=== PATIENT | female | born 1960 | race Caucasian/White ===

== ENCOUNTER 2018-12-13 11:45 | Emergency (ER) | payer OTHER | END 2018-12-13 15:52 | disposition home or self-care (01) | LOC: JER 11:45 ==

== ENCOUNTER 2020-02-20 20:00 | Observation (INO) | payer OTHER ==
[2020-02-20 20:23] VITALS: BMI 27.3
--- NOTE | 2020-02-20 20:47 | PDOC ---
Attending Attestation - Resident Resident Name: Dior Kilpatrick - ED Attending Attestation I have performed the following: I have examined & evaluated the patient, The case was reviewed & discussed with the resident, I agree w/resident's findings & plan - HPI HPI: 02/21/20 00:54 see resident hpi - Physicial Exam PE: 02/21/20 00:54 see resident exam - Medical Decision Making 02/21/20 00:57 60-year-old female with history of lupus here for intermittent left-sided chest pain, patient also admits to numbness and tingling to all 4 extremities EKG and labs were reviewed, there are no acute ST segment changes Troponin is within normal limits Patient has no acute respiratory distress, she is not tachycardic and not hypoxic, based on clinical evaluation PE not likely We will admit to medical service, telemetry for further observation Discharge - Discharge Information Problems reviewed: Yes Clinical Impression/Diagnosis: Chest pain, Paresthesia - Follow up/Referral Referrals: Angelita Newman [Primary Care Provider] - - Patient Discharge Instructions - Post Discharge Activity
[2020-02-20] MEDS ORDERED: ASPIRIN 81 MG CHEWABLE TABLETS PO ONE (21:35)
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
[2020-02-20 22:12] LABS: HEMATOCRIT 37.2 % (32.4-45.2); HEMOGLOBIN 12.3 GM/dL (10.7-15.3); MCH 30.1 pg (25.7-33.7); MEAN CELL VOLUME 91.2 fl (80-96); MEAN PLT VOLUME 8.5 fl (7.5-11.1); PLATELET COUNT 271 K/MM3 (134-434); RBC 4.08 M/mm3 (3.60-5.2); RDW 13.5 % (11.6-15.6); WHITE BLOOD COUNT 7.5 K/mm3 (4.0-10.0)
--- NOTE | 2020-02-20 22:12 | PDOC ---
*Physical Exam - Vital Signs Last Vital Signs Temp Pulse Resp BP Pulse Ox 97.9 F 82 20 139/84 98 02/20/20 20:09 02/20/20 20:09 02/20/20 20:09 02/20/20 20:09 02/20/20 20:09 ED Treatment Course - LABORATORY CBC & Chemistry Diagram: 02/20/20 21:47 02/20/20 21:47 - RADIOLOGY Radiograph Interpretation: HCT: THIS IS A PRELIMINARY REPORT DATE OF SERVICE: 2020-02-21 01:30:13 IMAGES: 275 EXAM: HEAD CT WITHOUT CONTRAST HISTORY: Worsening paresthesias COMPARISON: None. FINDINGS: The ventricular system is midline and nondilated. Mild cortical atrophy is noted.. There is no bleed, mass, extra-axial fluid collection or mass effect. No skull fracture or skull lesion is identified. The visualized paranasal sinuses and mastoid air cells are clear. IMPRESSION: No evidence of acute pathology. One or more of the following dose reduction techniques were used: automated exposure control, adjustment of the mA and/or kV according to patient size, use of iterative recon structive technique. THIS DOCUMENT HAS BEEN ELECTRONICALLY SIGNED Pako Blackman MD 02/21/2020 01:51 EST Medical Decision Making - Medical Decision Making Received sign out from resident Dr. Kilpatrick. In short, pt is a 60 y/o female presenting with left sided chest pain and paresthesias. Will f/u pending HCT and labs. HCT unremarkable for acute pathology. Reviewed laboratory data. No clinically significant derangement noted. 21 Feb 2020 02:25 AM Page sent for Dr. Newman through office answering service. Awaiting call back. 21 Feb 2020 02:39 AM Telephone discussion with Dr. Angelita Newman. Verbally appraised of the pts HPI, ED course, and current plan of management. Accepted the pt to tele obs for chest pain. Requested Dr. Villalobos be consulted for cardiology. Request placed in [employer]. Discussed results and plan to place on observation with pt. Expressed verbal understanding and agreement with plan. Case discussed with ED Attending Dr. Mancera. Miugel Oquendo M.D., PGY3 Emergency Medicine Residency Discharge - Discharge Information Problems reviewed: Yes Clinical Impression/Diagnosis: Chest pain, Paresthesia Condition: Stable - Admission Yes - Follow up/Referral Referrals: Angelita Newman [Primary Care Provider] - - Patient Discharge Instructions - Post Discharge Activity
[2020-02-20] MEDS ORDERED: ASPIRIN COATED 81 MG TABLET.EC ONE (22:14)
[2020-02-20 22:36] LABS: INR 0.95 (0.83-1.09); PROTHROMBIN TIME (PATIENT) 11.2 SEC (9.7-13.0)
[2020-02-20 22:39] LABS: ACTIVATED PTT 27.4 SECONDS (25.2-36.5)
[2020-02-20 23:12] LABS: MAGNESIUM 2.2 mg/dL (1.8-2.4); PHOSPHOROUS 3.2 mg/dL (2.5-4.9)
[2020-02-20 23:21] LABS: ALBUMIN 3.6 g/dl (3.4-5.0); ALK PHOS 71 U/L (45-117); ANION GAP 7 MMOL/L (8-16); BILIRUBIN,TOTAL 0.4 mg/dL (0.2-1); BLOOD UREA NITROGEN 12.4 mg/dL (7-18); CALCIUM 8.7 mg/dL (8.5-10.1); CHLORIDE 110 mmol/L (98-107); CO2 23 mmol/L (21-32); CREATININE 0.7 mg/dL (0.55-1.3); N-TERMINAL BNP 39.6 pg/ml (5-125); POTASSIUM 5.2 mmol/L (3.5-5.1); SGOT/AST 61 U/L (15-37); SGPT/ALT 38 U/L (13-61); SODIUM 141 mmol/L (136-145); TOT PROT 7.2 g/dl (6.4-8.2)
[2020-02-20 23:26] LABS: GLUCOSE,RANDOM 76 mg/dL (74-106)
[2020-02-21 09:23] LABS: ANION GAP 5 MMOL/L (8-16); BLOOD UREA NITROGEN 9.7 mg/dL (7-18); CALCIUM 8.8 mg/dL (8.5-10.1); CHLORIDE 110 mmol/L (98-107); CO2 28 mmol/L (21-32); CREATININE 0.7 mg/dL (0.55-1.3); GLUCOSE,RANDOM 80 mg/dL (74-106); POTASSIUM 3.6 mmol/L (3.5-5.1); SODIUM 144 mmol/L (136-145)
[2020-02-21] MEDS ORDERED: LOSARTAN POTASSIUM 50 MG TABLET ONE (09:41)
[2020-02-21] MEDS ORDERED: ASPIRIN 81 MG CHEWABLE TABLETS ONE (09:41)
[2020-02-21] MEDS ORDERED: HYDROXYCHLOROQUINE SO4 200 MG TABLET (FP) PO ONE (09:42)
--- NOTE | 2020-02-21 09:47 | CON.CARD ---
Consult Consult Specialty:: Cardiology Referred by:: Betty Newman Reason for Consultation:: Chest pain - History of Present Illness Chief Complaint: Chest pain History of Present Illness: 60-year-old female with history of lupus, HTN here for intermittent left-sided, sharp, stabbing chest pain, HERBERT, light-headedness last several weeks, patient also admits to numbness and tingling to all 4 extremities. She denies near or true syncope, palpitations, orthopnea, PND, LE edema or change in exercise capacity. - History Source History Provided By: Patient Limitations to Obtaining History: No Limitations - Alcohol/Substance Use Hx Alcohol Use: No - Smoking History Smoking history: Never smoked Have you smoked in the past 12 months: No Home Medications - Allergies Allergies/Adverse Reactions: Allergies Allergy/AdvReac Type Severity Reaction Status Date / Time No Known Allergies Allergy Verified 12/13/18 12:05 - Home Medications Home Medications: Ambulatory Orders Hydroxychloroquine Sulfate [Plaquenil] 200 mg PO DAILY 02/21/20 Losartan Potassium [Cozaar -] 25 mg PO DAILY 02/21/20 Review of Systems - Review of Systems Cardiovascular: reports: Chest Pain Neurological: reports: Numbness, Parasthesia Vital Signs: Vital Signs Temperature 98.2 F 02/21/20 06:59 Pulse Rate 69 02/21/20 06:59 Respiratory Rate 16 02/21/20 06:59 Blood Pressure 125/68 02/21/20 06:59 O2 Sat by Pulse Oximetry (%) 100 02/21/20 06:59 Constitutional: Yes: No Distress, Calm Neck: Yes: Supple Respiratory: Yes: Regular, CTA Bilaterally Gastrointestinal: Yes: Normal Bowel Sounds, Soft Cardiovascular: Yes: Regular Rate and Rhythm JVD: No Carotid Bruit: No Heart Sounds: Yes: S1, S2 Edema: No - Other Data Labs, Other Data: CBC, BMP 02/20/20 21:47 02/21/20 08:30 INR, PTT INR 0.95 (0.83-1.09) 02/20/20 21:47 Troponin, BNP 02/20/20 02/21/20 02/21/20 21:47 04:30 08:30 Troponin I < 0.02 < 0.02 < 0.02 B-Natriuretic Peptide 39.6 Troponin, BNP 02/20/20 02/21/20 02/21/20 21:47 04:30 08:30 Troponin I < 0.02 < 0.02 < 0.02 B-Natriuretic Peptide 39.6 NSR @ 73 w/o ST-T changes Ejection Fraction %: LVEF > or = 40 % Imaging - Results Chest X-ray: Report Reviewed (NAD) Problem List - Problems (1) Hypertension Code(s): I10 - ESSENTIAL (PRIMARY) HYPERTENSION Qualifiers: Hypertension type: essential hypertension Qualified Code(s): I10 - Essential (primary) hypertension (2) Lupus Code(s): M32.9 - SYSTEMIC LUPUS ERYTHEMATOSUS, UNSPECIFIED (3) Chest pain Code(s): R07.9 - CHEST PAIN, UNSPECIFIED Qualifiers: Chest pain type: other chest pain Qualified Code(s): R07.89 - Other chest pain; R07.8 - Other chest pain Assessment/Plan 1. Chest pain ruled out PA 2. Lupus 3. Dyspnea on exertion 4. HTN P:1. Ruled out PA 2. F/u HCT, carotid US 3. Continue losartan 50 qd 4. Given CV risk factors, recommend outpatient TTE and stress testing as outpatient 5. Thank you for consultative opportunity
[2020-02-21] MEDS: HYDROXYCHLOROQUINE SO4 200 MG TABLET (FP) PO SCH (10:04)
[2020-02-21] MEDS: ASPIRIN 81 MG CHEWABLE TABLETS PO SCH (10:04)
[2020-02-21] MEDS: LOSARTAN POTASSIUM 25 MG TABLET PO SCH (10:04)
--- NOTE | 2020-02-21 10:07 | CON.NEURO ---
Consult Consult Specialty:: Alessia Referred by:: Trent - History of Present Illness History of Present Illness: doe is a very pleasant 52-year-old right-handed female patient with history of lupus comes in to the hospital for neurological consultation and evaluation with a chief complaint of chest pressure chest pain neurology was called to evaluate the patient with a chief complaint of paresthesia and numbnessin upper and lower extremities. Patient denies any recent trauma patient was not exposed to Covid 19 no report of any recent head trauma patient had a CAT scan of the head which I reviewed. Patientdenies any history of speech problem. Patient with mild difficulty expressing herself. - History Source History Provided By: Patient Limitations to Obtaining History: No Limitations - Alcohol/Substance Use Hx Alcohol Use: No - Smoking History Smoking history: Never smoked Have you smoked in the past 12 months: No Home Medications - Allergies Allergies/Adverse Reactions: Allergies Allergy/AdvReac Type Severity Reaction Status Date / Time No Known Allergies Allergy Verified 12/13/18 12:05 - Home Medications Home Medications: Ambulatory Orders Hydroxychloroquine Sulfate [Plaquenil] 200 mg PO DAILY 02/21/20 Losartan Potassium [Cozaar -] 25 mg PO DAILY 02/21/20 Family Medical History Family History: Unremarkable Review of Systems - Review of Systems Constitutional: reports: No Symptoms Eyes: reports: No Symptoms Neurological: reports: Parasthesia, Tremors Physical Exam-Neuro Vital Signs: Vital Signs Temperature 98.2 F 02/21/20 06:59 Pulse Rate 79 02/21/20 09:58 Respiratory Rate 17 02/21/20 09:58 Blood Pressure 119/85 02/21/20 09:58 O2 Sat by Pulse Oximetry (%) 99 02/21/20 09:58 Labs: CBC, BMP 02/20/20 21:47 02/21/20 08:30 INR, PTT INR 0.95 (0.83-1.09) 02/20/20 21:47 - Neuro Exam Level Of Consciousness: Yes: Oriented to Person, Oriented to Place, Oriented to Time Eyes: Yes: PERRLA Speech: WNL Dominant Hand: Right Cranial Nerves II-XII Intact: Yes Gag: Present DTR's: 1+ Left Bicep, 1+ Right Bicep, 1+ Left Tricep, 1+ Right Tricep Response to light touch: Normal Response to pain prick: Normal Response to temperature: Normal Motor Strength: 3/5: Left Arm, Right Arm, Left Leg, Right Leg Gait: Deferred Imaging - Results Cat Scan: Image Reviewed MRI: Image Reviewed Problem List - Problems (1) Lightheadedness Code(s): R42 - DIZZINESS AND GIDDINESS Assessment/Plan lightheadedness and paresthesias Nonfocal neurological examination Questionable anxiety Hypertension urgency 1. Tight blood pressure control. 2. Baby aspirin. 3. Suggest 24 hour VMA. 4. Carotid Doppler. 5. Homocystine level. 6. Follow-up with cardiology Thank you very much for allowing me to be part of this patient neurological care. Kelly Agagrwal M.D. [facility] [phone]
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
[2020-02-22] MEDS ORDERED: diphenhydrAMINE HCL 25 MG CAPSULE (FP) PO ONE ×2 (02:10→02:14)
[2020-02-22] MEDS ORDERED: ACETAMINOPHEN 325 MG TABLET (FP) PO ONE (02:10)
[2020-02-22] MEDS ORDERED: ACETAMINOPHEN 325 MG TABLET (FP) ONE (02:14)
--- NOTE | 2020-02-22 08:14 | DS ---
Physical Examination Vital Signs: Vital Signs Temperature 98.2 F 02/22/20 06:00 Pulse Rate 61 02/22/20 06:00 Respiratory Rate 15 02/22/20 06:00 Blood Pressure 113/68 02/22/20 06:00 O2 Sat by Pulse Oximetry (%) 97 02/22/20 06:00 Findings/Remarks: feels well wants to go home d/w cardio and neruo OK to DC home f/u in office also f/u rheum for SLE / has occ ankles and hands pains Constitutional: Yes: No Distress, Calm Eyes: Yes: Conjunctiva Clear HENT: Yes: Atraumatic Neck: Yes: Supple Cardiovascular: Yes: Regular Rate and Rhythm Respiratory: Yes: CTA Bilaterally Gastrointestinal: Yes: Soft. No: Tenderness Renal/: No: Hematuria Musculoskeletal: No: Joint Stiffness, Joint Swelling Extremities: No: Cold, Cool, Cyanosis Edema: No Integumentary: No: Rash, Venous Stasis Changes Neurological: Yes: Alert, Oriented ...Motor Strength: WNL Psychiatric: Yes: Alert, Oriented. No: Agitated, Suicidal Ideation Labs: CBC, BMP 02/20/20 21:47 02/21/20 08:30 Discharge Summary Problems reviewed: Yes Reason For Visit: CHEST PAIN Current Active Problems Chest pain (Acute) Hypertension (Acute) Lupus (Acute) Paresthesia (Acute) Procedures: Principal: came on with CP and L sided / face numbness Other Procedures: head CT, CE negative; seen by cardiology and neurology cleared to DC home, po baby ASA Hospital Course: w.u negative; DC home from ER Condition: Stable - Instructions Diet, Activity, Other Instructions: f/u PCP cardiology and neurology in1-2 weeks; rheum f/u; RTER if recurrent c/o baby ASA po daily - take meds as advised d/w pt. Referrals: Angelita Newman [Primary Care Provider] - Bronson Villalobos MD [Staff Physician] - Kelly Aggarwal MD [Staff Physician] - Disposition: HOME - Home Medications Comprehensive Discharge Medication List: Ambulatory Orders Hydroxychloroquine Sulfate [Plaquenil] 200 mg PO DAILY 02/21/20 Losartan Potassium [Cozaar -] 25 mg PO DAILY 02/21/20 ASA 81 mg/d
[2020-02-22 10:56] VITALS: BP 112/76; PULSE 69; TEMP 98.1
[2020-02-22] MEDS: ASPIRIN 81 MG CHEWABLE TABLETS PO SCH (11:02)
[2020-02-22] MEDS: HYDROXYCHLOROQUINE SO4 200 MG TABLET (FP) PO SCH (11:03)
[2020-02-22] MEDS: LOSARTAN POTASSIUM 25 MG TABLET PO SCH (11:03)
--- NOTE | 2020-03-20 11:33 | EKG ---
Test Reason : Blood Pressure : / mmHG Vent. Rate : 073 BPM Atrial Rate : 073 BPM P-R Int : 156 ms QRS Dur : 082 ms QT Int : 384 ms P-R-T Axes : 064 -08 030 degrees QTc Int : 423 ms NORMAL SINUS RHYTHM LEFT ATRIAL ENLARGEMENT NONSPECIFIC ST ABNORMALITY ABNORMAL ECG Confirmed by MD DUTCH, HUMBLE ([id number]) on 02/21/2020 9:18:44 AM Also confirmed by MD DUTCH, HUMBLE ([id number]), social media editor LUISA SANTOS ([id number]) on 03/20/2020 11:33:19 AM Referred By: Confirmed By:HUMBLE JUDD MD
== END 2020-02-22 10:00 | disposition home or self-care (01) ==
LOC: JER 20:00 → JERBED 02-21 03:04
PROVIDERS: ADMIT Internal Medicine; ATTEND Internal Medicine
DX: R20.2 Paresthesia of skin (principal); M32.9 Systemic lupus erythematosus, unspecified; R42 Dizziness and giddiness; I10 Essential (primary) hypertension; R07.89 Other chest pain; G43.909 Migraine, unspecified, not intractable, without status migrainosus; Z86.73 Personal history of transient ischemic attack (TIA), and cerebral infarction without residual deficits; N20.0 Calculus of kidney; Z87.891 Personal history of nicotine dependence
CPT/HCPCS: 36415; 70450-TC; 71045-TC-FY; 80048; 80053; 82550; 82553; 83735; 83880; 84100; 84484; 85027; 85610; 85730; 93005; 93010; 93880-TC; 99285-25; G0378; U0003

== ENCOUNTER 2021-01-08 07:21 | Day surgery (SDC) | payer OTHER ==
[2021-01-06 12:16] VITALS: BMI 25.7
[2021-01-08] MEDS ORDERED: ROPIVACAINE HCL 0.5% 30ML VIAL ONE (10:32)
[2021-01-08] MEDS ORDERED: MIDAZOLAM HCL 2 MG/2 ML SINGLE DOSE VIAL ONE ×2 (10:32→11:39)
[2021-01-08] MEDS ORDERED: BUPIVACAINE HCL/EPINEPHRINE/PF 30 ML VIAL IJ ONE (11:37)
[2021-01-08] MEDS ORDERED: LIDOCAINE HCL/PF 2% SDV 5ML VIAL ONE (11:38)
[2021-01-08] MEDS ORDERED: ceFAZolin SODIUM 1 GM VIAL ONE ×2 (11:38→11:43)
[2021-01-08] MEDS ORDERED: ONDANSETRON 4 MG/2 ML VIAL ONE (11:38)
[2021-01-08] MEDS ORDERED: PROPOFOL 20 ML ONE ×4 (11:38→13:55)
[2021-01-08] MEDS ORDERED: SUCCINYLCHOLINE CHLORIDE 200 MG/10 ML SYRINGE ONE (11:39)
[2021-01-08] MEDS ORDERED: EPINEPHrine 1:1,000 1 MG/1 ML - 30ML VIAL (INJECTION) ONE (11:44)
[2021-01-08] MEDS ORDERED: BUPIVACAINE 0.25% /EPI 1:200,000 10 ML VIAL NR ONE (12:43)
[2021-01-08] MEDS ORDERED: oxyCODONE HCL 5 MG TABLET PO PRN ×2 (12:58)
[2021-01-08] MEDS ORDERED: ONDANSETRON 4 MG/2 ML VIAL IVPUSH PRN (12:58)
[2021-01-08] MEDS ORDERED: LACTATED RINGERS SOLUTION 1,000 ML IV SCH (13:00)
[2021-01-08 16:03] VITALS: BP 121/78; PULSE 91; TEMP 98
== END 2021-01-08 16:00 | disposition home or self-care (01) ==
LOC: FASU 07:21
PROVIDERS: ATTEND Orthopaedic Surgery
PROC: 0RQK4ZZ Repair Left Shoulder Joint, Percutaneous Endoscopic Approach (ICD-10-PCS; 2021-01-08)
PROC: 0RQK4ZZ Repair Left Shoulder Joint, Percutaneous Endoscopic Approach (ICD-10-PCS; principal; 2021-01-08 12:43)
DX: M25.312 Other instability, left shoulder (principal); S42.292D Other displaced fracture of upper end of left humerus, subsequent encounter for fracture with routine healing; X58.XXXD Exposure to other specified factors, subsequent encounter
CPT/HCPCS: 94760